=== PATIENT | male | born 1945 | race African-American/Black ===

== ENCOUNTER 2016-04-02 07:56 | Day surgery (SDC) | payer MEDICARE, OTHER ==
[2016-04-02] MEDS ORDERED: GLYCOPYRROLATE INJ 0.4 MG/2 ML VIAL ONE (08:14)
[2016-04-02] MEDS ORDERED: PROMETHAZINE HCL INJ 25 MG/1 ML VIAL ONE (08:14)
[2016-04-02] MEDS ORDERED: NALOXONE HCL INJ/PF 0.4 MG/1 ML SDV ONE (08:14)
[2016-04-02] MEDS ORDERED: ONDANSETRON HCL INJ/PF 4 MG/2 ML SDV ONE (08:14)
[2016-04-02] MEDS ORDERED: FLUMAZENIL INJ 0.5 MG/5 ML VIAL IV ONE (08:15)
[2016-04-02] MEDS ORDERED: FENTANYL CITRATE INJ/PF 100 MCG/2 ML AMPUL ONE (08:15)
[2016-04-02] MEDS ORDERED: EPINEPHRINE INJ 1 MG/10 ML DISP.SYRIN ONE (08:15)
[2016-04-02] MEDS: MIDAZOLAM 2 MG/2 ML INJ ONE ×2 (08:37→08:41)
--- NOTE | 2016-04-02 09:00 | Operative Report ---
Operative Report DATE OF SURGERY: 04/02/16 Operative Report: The risks, benefits and alternatives of the procedure including risks of bleeding, perforation requiring surgery are explained to the patient in detail and informed consent is obtained. Patient is placed in the left lateral decubital position and brought back to the endoscopy suite. Timeout is called. Conscious sedation medications are provided. An Olympus videoscope was inserted patient's rectum a rectal examination done prior to that did not reveal any masses tears or fissures the scope was then slowly advance to the cecum the seems identified by the usual anatomical landmarks of the ileocecal valve as well as the appendiceal office. Photodocumentation was obtained prep is good and scope was then sequentially pulled back via the rest was of the colon including the ascending colon, hepatic flexure, transverse colon, splenic flexure, descending colon and finally the rectosigmoid colon, mucosa does otherwise appeared to be normal. Retroflexion maneuvers performed. PREOPERATIVE DIAGNOSIS: Colorectal cancer screening POSTOPERATIVE DIAGNOSIS: 4 polyps noted in the recto sigmoid area status post snare polypectomy all the polyps are retrieved. Internal hemorrhoids. Diverticulosis OPERATION: Colonoscopy with snare polypectomy SURGEON: MARCIANO SULLIVAN ANESTHESIA: Moderate Sedation - 4 mg of Versed, 50 g of fentanyl. TISSUE REMOVED OR ALTERED: All the polyps were retrieved. COMPLICATIONS: None. ESTIMATED BLOOD LOSS: none. PROCEDURE: Patient tolerated the procedure well. No immediate postprocedure complications are noted. Patient is discharged in good condition. Discharge date 04/02/2016. Discharge diet: Regular. Discharge activity: Regular. 2-3 week follow-up to discuss findings. Surveillance colonoscopy in 5 years. Patient is instructed to call the office or proceed to the emergency room after any further problems or questions. We'll await on biopsies.
[2016-04-02 09:55] VITALS: BP 129/72
== END 2016-04-02 10:10 | disposition home or self-care (01) ==
LOC: END 07:56
PROVIDERS: ATTEND Internal Medicine Gastroenterology
PROC: 0DBN8ZX Excision of Sigmoid Colon, Via Natural or Artificial Opening Endoscopic, Diagnostic (ICD-10-PCS; principal; 2016-04-02 08:30)
DX: Z12.11 Encounter for screening for malignant neoplasm of colon (principal); D12.7 Benign neoplasm of rectosigmoid junction; K57.30 Diverticulosis of large intestine without perforation or abscess without bleeding; K64.8 Other hemorrhoids; M19.90 Unspecified osteoarthritis, unspecified site; E78.5 Hyperlipidemia, unspecified; G62.9 Polyneuropathy, unspecified; N40.1 Benign prostatic hyperplasia with lower urinary tract symptoms; K21.9 Gastro-esophageal reflux disease without esophagitis; N52.9 Male erectile dysfunction, unspecified; R97.20 Elevated prostate specific antigen [PSA]; Z79.899 Other long term (current) drug therapy
CPT/HCPCS: 45385; 88305 ×2; J2250; J3010; J0171; J2310; J2405; J2550; J3490

== ENCOUNTER 2016-06-27 12:48 | Observation (INO) | payer OTHER, MEDICARE ==
--- NOTE | 2016-06-27 13:12 | ER Document Report ---
ED Medical Screen (RME) - General Chief Complaint: Numbness of Face Stated Complaint: POSSIBLE STROKE Notes: Patient says yesterday he was cleaning some gutters and then washing cars. When he finished in the afternoon, he went in to clean up and suddenly had a "catching" of the left face that extended down into the left shoulder and arm and hand, but did not involve the leg. He said it was like a cramp. He also noticed some burning of his left eye. He had residual numbness of the left face and had to chew his food on the right side because drinking liquids with run out of his mouth. Denies any headache. Denies involvement of the legs. He says his symptoms are somewhat better today, although he still feels numb in the left face. Patient also says he has pain in the right flank region which happened when he was lifting a garage door yesterday to do his car washing. That pain has continued today, as well. Patient does not have any chest pains. Denies shortness of breath. No nausea or vomiting or diarrhea. Patient sees a local neurologist (Mark) who has him on gabapentin for peripheral neuropathy. 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 Patient says he does occasionally get cramps felt to be related to this condition. Patient had prostate biopsy about 2 weeks ago for an enlarged prostate. Patient says he had seizures as a young boy, but they stopped by the time he was in his teens. TRAVEL OUTSIDE OF THE [place] IN LAST 30 DAYS: No - Related Data Allergies/Adverse Reactions: oxycodone HCl [From Percocet] Allergy (Intermediate, Verified 06/27/16 12:56) Nausea Past Medical History - Past Medical History Cardiac Medical History: Reports: Hx Coronary Artery Disease - HIGH CHOL, Hx Hypercholesterolemia, Hx Hypertension Denies: Hx Heart Attack Pulmonary Medical History: Denies: Hx Asthma, Hx Bronchitis, Hx COPD, Hx Pneumonia Neurological Medical History: Denies: Hx Cerebrovascular Accident, Hx Seizures Renal/ Medical History: Denies: Hx Peritoneal Dialysis GI Medical History: Reports: Hx Gastroesophageal Reflux Disease Musculoskeltal Medical History: Reports Hx Arthritis Psychiatric Medical History: Reports: Hx Post Traumatic Stress Disorder - Immunizations Hx Diphtheria, Pertussis, Tetanus Vaccination: Yes Physical Exam - Vital signs Vitals: Temp Pulse Resp BP Pulse Ox 97.2 F 101 H 20 143/82 H 97 06/27/16 12:54 06/27/16 12:54 06/27/16 12:54 06/27/16 12:54 06/27/16 12:54 Course - Vital Signs Vital signs: Temp Pulse Resp BP Pulse Ox 97.2 F 101 H 20 143/82 H 97 06/27/16 12:54 06/27/16 12:54 06/27/16 12:54 06/27/16 12:54 06/27/16 12:54
[2016-06-27 13:36] LABS: ABSOLUTE EOSINOPHILS # (AUTO) 0.1 10^3/uL (0.0-0.6); ABSOLUTE LYMPHOCYTES (AUTO) 2.1 10^3/uL (0.5-4.7); ABSOLUTE MONOCYTES (AUTO) 0.4 10^3/uL (0.1-1.4); ABSOLUTE NEUT (AUTO) 1.7 10^3/uL (1.7-8.2); BASOPHILS % (AUTO) 0.8 % (0-2); EOSINOPHILS % (AUTO) 2.6 % (0-6); HEMATOCRIT 41.8 % (37.9-51.0); HEMOGLOBIN 14.2 g/dL (13.5-17.0); HGB HCT DIFFERENCE 0.8; LYMPHOCYTES % (AUTO) 47.9 % (13-45); MEAN CORPUSCULAR HEMOGLOBIN 30.4 pg (27.0-33.4); MEAN CORPUSCULAR VOLUME 89 fl (80-97); MONOCYTES % (AUTO) 9.4 % (3-13); RED BLOOD COUNT 4.68 10^6/uL (4.35-5.55); RED CELL DISTRIBUTION WIDTH 15.3 % (11.5-14.0); SEGMENTED NEUTROPHILS % (AUTO) 39.3 % (42-78); WHITE BLOOD COUNT 4.3 10^3/uL (4.0-10.5)
[2016-06-27 13:52] LABS: ALANINE AMINOTRANSFERASE 41 U/L (21-72); ALBUMIN 4.1 g/dL (3.5-5.0); ALKALINE PHOSPHATASE 70 U/L (38-126); ANION GAP 12 (5-19); ASPARTATE AMINO TRANSFERASE 33 U/L (17-59); BILIRUBIN,DIRECT 0.3 mg/dL (0.0-0.4); BILIRUBIN,TOTAL 0.7 mg/dL (0.2-1.3); BLOOD UREA NITROGEN 11 mg/dL (7-20); CALCIUM 9.5 mg/dL (8.4-10.2); CARBON DIOXIDE 26 mmol/L (22-30); CHLORIDE 106 mmol/L (98-107); CREATINE KINASE 148 U/L (55-170); CREATININE RESULT 0.88 mg/dL (0.52-1.25); GLUCOSE 95 mg/dL (75-110); POTASSIUM 4.4 mmol/L (3.6-5.0); TOTAL PROTEIN 7.7 g/dL (6.3-8.2)
[2016-06-27 13:55] LABS: APPEARANCE,URINE CLEAR; BILIRUBIN,URINE NEGATIVE (NEGATIVE); GLUCOSE, URINE NEGATIVE (NEGATIVE); KETONES,URINE NEGATIVE (NEGATIVE); LEUKOCYTE ESTERASE,URINE MODERATE (NEGATIVE); NITRITE,URINE NEGATIVE (NEGATIVE); PROTEIN,URINE NEGATIVE (NEGATIVE); URINE SPECIFIC GRAVITY 1.003; UROBILINOGEN,URINE NEGATIVE mg/dL (<2.0)
[2016-06-27 14:04] LABS: CREATINE KINASE MB 1.12 ng/mL (<4.55)
[2016-06-27 14:05] LABS: TROPONIN I < 0.012 ng/mL
[2016-06-27] MEDS ORDERED: ASPIRIN 325 MG TABLET PO ONE (14:59)
--- NOTE | 2016-06-27 15:02 | ER Document Report ---
ED General - General Chief Complaint: Numbness of Face Stated Complaint: POSSIBLE STROKE Mode of Arrival: Ambulatory Information source: Patient, Relative Notes: This is a 71-year-old -[place] male presents to the ER for evaluation of left-sided facial numbness and left arm weakness. He states that the symptoms started yesterday sometime around 1 in the afternoon. Patient states he was outside cleaning the gutters and then went inside to bathe. While he was looking in the mirror he noticed some asymmetry to the left side of his face and felt that his face was numb and that he could not control the muscles normally. He also described a burning sensation in his left eye. He states that he had some weakness to the left upper extremity as well. He decided not to say anything to his family about these symptoms. Today he noticed a slight headache with persistence of the left facial numbness and left arm weakness and he mentioned this to his who reached him to come to the ER for evaluation today. states that he has also seemed a "little slow" today, at times somewhat confused. He denies any vision complaints. He has had no nausea or vomiting. No chest pain. No prior history of similar symptoms. Of note he also has some intermittent right flank pain that began yesterday as he was lifting up the garage door. He states his he was lifting the door he felt a sudden catch in the right side of his lower back. He has had no dysuria or hematuria or frequency. TRAVEL OUTSIDE OF THE [place] IN LAST 30 DAYS: No - Related Data Allergies/Adverse Reactions: oxycodone HCl [From Percocet] Allergy (Intermediate, Verified 06/27/16 12:56) Nausea Home Medications: Current Home Medications Finasteride [Proscar 5 mg Tablet] 5 mg PO DAILY 06/27/16 [History] Gabapentin [Neurontin] 800 mg PO Q8 06/27/16 [History] Tamsulosin HCl [Flomax 0.4 mg Cap.sr] 0.4 mg PO QPM 06/27/16 [History] Past Medical History - General Information source: Patient, [facility] Records - Social History Smoking Status: Former Smoker - quit 1985 Chew tobacco use (# tins/day): No Frequency of alcohol use: None Drug Abuse: None Family History: Reviewed & Not Pertinent Patient has suicidal ideation: No Patient has homicidal ideation: No - Past Medical History Cardiac Medical History: Reports: Hx Coronary Artery Disease - HIGH CHOL, Hx Hypercholesterolemia, Hx Hypertension Denies: Hx Heart Attack Pulmonary Medical History: Denies: Hx Asthma, Hx Bronchitis, Hx COPD, Hx Pneumonia Neurological Medical History: Denies: Hx Cerebrovascular Accident, Hx Seizures Renal/ Medical History: Denies: Hx Peritoneal Dialysis GI Medical History: Reports: Hx Gastroesophageal Reflux Disease Musculoskeltal Medical History: Reports Hx Arthritis Psychiatric Medical History: Reports: Hx Post Traumatic Stress Disorder Past Surgical History: Reports: Hx Herniorrhaphy, Other - prostate biopsy 2 weeks ago - Immunizations Hx Diphtheria, Pertussis, Tetanus Vaccination: Yes Review of Systems - Review of Systems Notes: REVIEW OF SYSTEMS: CONSTITUTIONAL : Denies fever, chills, or sweats. Denies recent illness. EENT: Denies eye, ear, throat, or mouth pain or symptoms. Denies nasal or sinus congestion. CARDIOVASCULAR: Denies chest pain. RESPIRATORY: Denies cough, cold, or chest congestion. Denies shortness of breath, difficulty breathing, or wheezing. GASTROINTESTINAL: Denies abdominal pain. Denies nausea, vomiting, or diarrhea. GENITOURINARY: Denies difficulty urinating, painful urination, burning, frequency, or blood in urine. MUSCULOSKELETAL: As per history of present illness SKIN: Denies rash or skin lesions. HEMATOLOGIC : Denies easy bruising or bleeding. LYMPHATIC: Denies swollen, enlarged glands. NEUROLOGICAL: As per history of present illness PSYCHIATRIC: Denies anxiety or stress or depression. ALL OTHER SYSTEMS REVIEWED AND NEGATIVE. Physical Exam - Vital signs Vitals: Temp Pulse Resp BP Pulse Ox 97.2 F 101 H 20 143/82 H 97 06/27/16 12:54 06/27/16 12:54 06/27/16 12:54 06/27/16 12:54 06/27/16 12:54 - Notes Notes: PHYSICAL EXAMINATION: GENERAL: Well-appearing, well-nourished alert and conversant, and in no acute distress. HEAD: Atraumatic, normocephalic. EYES: Pupils equal round and reactive to light, extraocular movements intact, sclera anicteric, conjunctiva are normal. ENT: nares patent, oropharynx clear without exudates. Moist mucous membranes. NECK: Normal range of motion, supple without lymphadenopathy LUNGS: Breath sounds clear to auscultation bilaterally and equal. No wheezes rales or rhonchi. HEART: Regular rate and rhythm without murmurs ABDOMEN: Soft, nontender, normoactive bowel sounds. No guarding, no rebound. No masses appreciated. EXTREMITIES: Normal range of motion, no pitting or edema. NEUROLOGICAL: Alert and oriented x3. Cranial nerves intact bilaterally with exception of persistant L facial numbness per patient. states pt still has mild facial asymmetry, but I do not appreciate this at this time. Motor strength decreased LUE with forearm extension and dairy manager strength 4/5 as compared to RUE. No pronator drift. Motor strength 5/5 BLE. Negative finger to nose. PSYCH: Normal mood, normal affect. SKIN: Warm, Dry, normal turgor, no rashes or lesions noted. Course - Re-evaluation Re-evalutation: 06/27/16 Patient has remained hemodynamically stable in the emergency department. He has had no change in his neuro exam. His CT of his head was negative. He has been given aspirin. Will admit to hospitalist to for further CVA/TIA workup. Patient and his are agreeable with this plan and their questions are answered. - Vital Signs Vital signs: Temp Pulse Resp BP Pulse Ox 98.1 F 66 18 132/75 H 100 06/27/16 19:30 06/27/16 20:00 06/27/16 20:00 06/27/16 20:00 06/27/16 20:00 - Laboratory Result Diagrams: 06/27/16 13:15 06/27/16 13:15 Laboratory results interpreted by me: 06/27/16 06/27/16 13:15 13:15 RDW 15.3 H Seg Neutrophils % 39.3 L Lymphocytes % 47.9 H Urine Blood LARGE H Ur Leukocyte Esterase MODERATE H Discharge - Discharge Clinical Impression: Elevated blood pressure reading, Abnormal urinalysis CVA (cerebrovascular accident) Qualifiers: CVA mechanism: unspecified Qualified Code(s): I63.9 - Cerebral infarction, unspecified Condition: Stable Disposition: ADMITTED OBSERVATION Admitting Provider: Hospitalist - Dr. Harjit Joe Unit Admitted: Telemetry
[2016-06-27] MEDS ORDERED: CEFTRIAXONE 1 GM/D5W RTU 50 ML IV ONE (15:05)
--- NOTE | 2016-06-27 16:49 | EKG REPORT ---
SEVERITY:- NORMAL ECG - SINUS RHYTHM : Confirmed by: Joyce Quach MD 27-Jun-2016 16:47:50
--- NOTE | 2016-06-27 17:13 | PDOC H&P ---
History of Present Illness Admission Date/PCP: 06/27/16 15:56 ENDY WYATT DO Patient complains of: Left facial droop and weakness History of Present Illness: LISBETH DOWNING is a 71 year old male with a past medical history of benign prostatic hyperplasia recent biopsy that presented to the emergency department for evaluation of left-sided facial numbness and left arm weakness. He states that the symptoms started yesterday sometime around 1300. Patient states he was outside cleaning the gutters and then went inside to bathe. While he was looking in the mirror he noticed some asymmetry to the left side of his face and felt that his face was numb and that he could not control the muscles normally. He also described a burning sensation in his left eye. He states that he had some weakness to the left upper extremity as well. He decided not to say anything to his family about these symptoms. She denies any dysphasia, chest pain, nausea, vomiting, diarrhea, shortness of breath, dizziness, or fever. Today he noticed a slight headache with persistence of the left facial numbness and left arm weakness and he mentioned this to his who reached him to come to the ER for evaluation today. states that he has also seemed a "little slow" today, at times somewhat confused. He denies any vision complaints. He has had no nausea or vomiting. No chest pain. No prior history of similar symptoms. Of note he also has some intermittent right flank pain that began yesterday as he was lifting up the garage door. He states his he was lifting the door he felt a sudden catch in the right side of his lower back. He has had no dysuria or hematuria or frequency. Patient referred to the hospitalist for observation and management. Past Medical History Cardiac Medical History: Reports: Coronary Artery Disease, Hyperlipidema, Hypertension Renal/ Medical History: Reports: Other - Benign prostatic hyperplasia GI Medical History: Reports: Gastroesophageal Reflux Disease Musculoskeltal Medical History: Reports: Arthritis Psychiatric Medical History: Reports: Post Traumatic Stress Disorder Past Surgical History Past Surgical History: Reports: Herniorrhaphy, Other - prostate biopsy 2 weeks ago Social History Information Source: Patient Occupation: Retired from the [employer] Lives with: Family, Spouse/Significant other Smoking Status: Former Smoker - quit 1985 Frequency of Alcohol Use: Social Hx Recreational Drug Use: No Hx Prescription Drug Abuse: No - Advance Directive Resuscitation Status: Full Code Surrogate healthcare decision maker:: Rufina, his spouse Family History Family History: CVA, Hypertension Parental Family History Reviewed: Yes Children Family History Reviewed: Yes Sibling(s) Family History Reviewed.: Yes Medication/Allergy Home Medications: Finasteride [Proscar 5 mg Tablet] 5 mg PO DAILY 06/27/16 Gabapentin [Neurontin] 800 mg PO Q8 06/27/16 Tamsulosin HCl [Flomax 0.4 mg Cap.sr] 0.4 mg PO QPM 06/27/16 Allergies/Adverse Reactions: oxycodone HCl [From Percocet] Allergy (Intermediate, Verified 06/27/16 12:56) Nausea Review of Systems Constitutional: PRESENT: weakness. ABSENT: chills, fever(s), headache(s), weight gain, weight loss Eyes: ABSENT: visual disturbances Ears: ABSENT: hearing changes Cardiovascular: ABSENT: chest pain, dyspnea on exertion, edema, orthropnea, palpitations Respiratory: ABSENT: cough, hemoptysis Gastrointestinal: ABSENT: abdominal pain, constipation, diarrhea, hematemesis, hematochezia, nausea, vomiting Genitourinary: ABSENT: dysuria, hematuria Musculoskeletal: ABSENT: joint swelling Integumentary: ABSENT: rash, wounds Neurological: PRESENT: numbness. ABSENT: abnormal gait, abnormal speech, confusion, dizziness, focal weakness, syncope Psychiatric: ABSENT: anxiety, depression, homidical ideation, suicidal ideation Endocrine: ABSENT: cold intolerance, heat intolerance, polydipsia, polyuria Hematologic/Lymphatic: ABSENT: easy bleeding, easy bruising Physical Exam Vital Signs: Temp Pulse Resp BP Pulse Ox 97.2 F 101 H 20 143/82 H 97 06/27/16 12:54 06/27/16 12:54 06/27/16 12:54 06/27/16 12:54 06/27/16 12:54 General appearance: PRESENT: no acute distress, cooperative, well-developed, well-nourished Head exam: PRESENT: atraumatic, normocephalic Eye exam: PRESENT: conjunctiva pink, EOMI, PERRLA. ABSENT: scleral icterus Ear exam: PRESENT: normal external ear exam Mouth exam: PRESENT: moist, tongue midline Neck exam: ABSENT: carotid bruit, JVD, lymphadenopathy, thyromegaly Respiratory exam: PRESENT: clear to auscultation holly, symmetrical, unlabored. ABSENT: rales, rhonchi, tachypnea, wheezes Cardiovascular exam: PRESENT: RRR. ABSENT: diastolic murmur, rubs, systolic murmur Pulses: PRESENT: normal dorsalis pedis pul Vascular exam: PRESENT: normal capillary refill GI/Abdominal exam: PRESENT: normal bowel sounds, soft. ABSENT: distended, guarding, mass, organolmegaly, rebound, tenderness Rectal exam: PRESENT: deferred Extremities exam: PRESENT: full ROM. ABSENT: calf tenderness, clubbing, pedal edema Neurological exam: PRESENT: alert, awake, oriented to person, oriented to place , oriented to time, oriented to situation, other - Left-sided weakness is noted ever so faint left-sided facial droop. ABSENT: motor sensory deficit Psychiatric exam: PRESENT: appropriate affect, normal mood. ABSENT: homicidal ideation, suicidal ideation Skin exam: PRESENT: dry, intact, warm. ABSENT: cyanosis, rash Results Laboratory Results: Labs- Last Values WBC 4.3 10^3/uL (4.0-10.5) 06/27/16 13:15 RBC 4.68 10^6/uL (4.35-5.55) 06/27/16 13:15 Hgb 14.2 g/dL (13.5-17.0) 06/27/16 13:15 Hct 41.8 % (37.9-51.0) 06/27/16 13:15 MCV 89 fl (80-97) 06/27/16 13:15 MCH 30.4 pg (27.0-33.4) 06/27/16 13:15 MCHC 34.0 g/dL (32.0-36.0) 06/27/16 13:15 RDW 15.3 % (11.5-14.0) H 06/27/16 13:15 Plt Count 228 10^3/uL (150-450) 06/27/16 13:15 Seg Neutrophils % 39.3 % (42-78) L 06/27/16 13:15 Lymphocytes % 47.9 % (13-45) H 06/27/16 13:15 Monocytes % 9.4 % (3-13) 06/27/16 13:15 Eosinophils % 2.6 % (0-6) 06/27/16 13:15 Basophils % 0.8 % (0-2) 06/27/16 13:15 Absolute Neutrophils 1.7 10^3/uL (1.7-8.2) 06/27/16 13:15 Absolute Lymphocytes 2.1 10^3/uL (0.5-4.7) 06/27/16 13:15 Absolute Monocytes 0.4 10^3/uL (0.1-1.4) 06/27/16 13:15 Absolute Eosinophils 0.1 10^3/uL (0.0-0.6) 06/27/16 13:15 Absolute Basophils 0.0 10^3/uL (0.0-0.2) 06/27/16 13:15 Sodium 144.0 mmol/L (137-145) 06/27/16 13:15 Potassium 4.4 mmol/L (3.6-5.0) 06/27/16 13:15 Chloride 106 mmol/L (98-107) 06/27/16 13:15 Carbon Dioxide 26 mmol/L (22-30) 06/27/16 13:15 Anion Gap 12 (5-19) 06/27/16 13:15 BUN 11 mg/dL (7-20) 06/27/16 13:15 Creatinine 0.88 mg/dL (0.52-1.25) 06/27/16 13:15 Est GFR ( Amer) > 60 (>60) 06/27/16 13:15 Est GFR (Non-Af Amer) > 60 (>60) 06/27/16 13:15 Glucose 95 mg/dL (75-110) 06/27/16 13:15 Calcium 9.5 mg/dL (8.4-10.2) 06/27/16 13:15 Total Bilirubin 0.7 mg/dL (0.2-1.3) 06/27/16 13:15 Direct Bilirubin 0.3 mg/dL (0.0-0.4) 06/27/16 13:15 Indirect Bilirubin Not Reportable 06/27/16 13:15 Neonat Total Bilirubin Not Reportable 06/27/16 13:15 AST 33 U/L (17-59) 06/27/16 13:15 ALT 41 U/L (21-72) 06/27/16 13:15 Alkaline Phosphatase 70 U/L (38-126) 06/27/16 13:15 Creatine Kinase 148 U/L (55-170) 06/27/16 13:15 CK-MB (CK-2) 1.12 ng/mL (<4.55) 06/27/16 13:15 Troponin I < 0.012 ng/mL 06/27/16 13:15 Total Protein 7.7 g/dL (6.3-8.2) 06/27/16 13:15 Albumin 4.1 g/dL (3.5-5.0) 06/27/16 13:15 Urine Color STRAW 06/27/16 13:15 Urine Appearance CLEAR 06/27/16 13:15 Urine pH 7.0 (5.0-9.0) 06/27/16 13:15 Ur Specific [place] 1.003 06/27/16 13:15 Urine Protein NEGATIVE mg/dL (NEGATIVE) 06/27/16 13:15 Urine Glucose (UA) NEGATIVE mg/dL (NEGATIVE) 06/27/16 13:15 Urine Ketones NEGATIVE mg/dL (NEGATIVE) 06/27/16 13:15 Urine Blood LARGE (NEGATIVE) H 06/27/16 13:15 Urine Nitrite NEGATIVE (NEGATIVE) 06/27/16 13:15 Urine Bilirubin NEGATIVE (NEGATIVE) 06/27/16 13:15 Urine Urobilinogen NEGATIVE mg/dL (<2.0) 06/27/16 13:15 Ur Leukocyte Esterase MODERATE (NEGATIVE) H 06/27/16 13:15 Urine WBC (Auto) 7 /HPF 06/27/16 13:15 Urine RBC (Auto) 2 /HPF 06/27/16 13:15 Urine Bacteria (Auto) TRACE /HPF 06/27/16 13:15 Urine Mucus (Auto) RARE /LPF 06/27/16 13:15 Urine Ascorbic Acid NEGATIVE (NEGATIVE) 06/27/16 13:15 Impressions: Head CT 06/27/16 13:13 IMPRESSION: NORMAL BRAIN CT WITHOUT CONTRAST. Chest X-Ray 06/27/16 15:15 IMPRESSION: NO ACUTE RADIOGRAPHIC FINDING IN THE CHEST. Assessment & Plan - Diagnosis (1) CVA (cerebrovascular accident) Qualifiers: CVA mechanism: unspecified Qualified Code(s): I63.9 - Cerebral infarction, unspecified Is this a current diagnosis for this admission?: YesPlan: Will observe the patient seems telemetry unit will obtain MRI, carotid Doppler, and echocardiogram. Will allow permissive hypertension start patient on full dose statin as well as aspirin therapy. Will monitor clinically. Will consult physical, occupational, and speech therapies. (2) BPH (benign prostatic hyperplasia) Qualifiers: Prostatic enlargement morphology: unspecified morphology Lower urinary tract symptom presence: symptoms absent Qualified Code(s): N40.0 - Benign prostatic hyperplasia without lower urinary tract symptoms Is this a current diagnosis for this admission?: YesPlan: Resume home blood pressure medications. (3) Abnormal urinalysis Is this a current diagnosis for this admission?: YesPlan: The patient received a dose of Rocephin in the ER. Will await culture. (4) Hypertension Qualifiers: Hypertension type: essential hypertension Qualified Code(s): I10 - Essential (primary) hypertension Is this a current diagnosis for this admission?: YesPlan: The patient does not take medications for this although he states he has been diagnosed in the past. Will allow for permissive hypertension and follow. (5) DVT prophylaxis Is this a current diagnosis for this admission?: YesPlan: Plan subcutaneous heparin - Time Time Spent: 50 to 70 Minutes Medications reviewed and adjusted accordingly: Yes Anticipated discharge: Home Within: within 24 hours Disposition: The patient is a full code. Pending patient's symptomatology and diagnostic findings will reevaluate in the a.m.
[2016-06-27] MEDS ORDERED: TAMSULOSIN HCL 0.4 MG CAP.SR.24H PO SCH (18:00)
[2016-06-27] MEDS: GABAPENTIN 400 MG CAPSULE PO SCH (21:16)
[2016-06-27] MEDS: HEPARIN SOD (PORCINE) 5,000 UNIT/ML 1 ML SYRINGE SUBCUT SCH (21:20)
[2016-06-27] MEDS ORDERED: ATORVASTATIN CALCIUM 80 MG TABLET PO SCH (22:00)
[2016-06-28] MEDS: HEPARIN SOD (PORCINE) 5,000 UNIT/ML 1 ML SYRINGE SUBCUT SCH (05:34)
[2016-06-28] MEDS: GABAPENTIN 400 MG CAPSULE PO SCH ×2 (05:34→15:33)
[2016-06-28 07:11] LABS: CHOLESTEROL 233.04 mg/dL (0-200); Direct HDL 46 mg/dL (>40); TRIGLYCERIDES 356 mg/dL (<150)
[2016-06-28 07:21] LABS: DIRECT LDL 52 mg/dL (<100)
[2016-06-28 07:23] LABS: VLDL CHOLESTEROL 71.2 mg/dL (10-31)
[2016-06-28] MEDS ORDERED: FINASTERIDE 5 MG TABLET PO SCH (10:00)
[2016-06-28] MEDS ORDERED: ASPIRIN 81 MG TABLET, CHEWABLE PO SCH (10:00)
[2016-06-28] MEDS ORDERED: ACETAMINOPHEN 325 MG TABLET PO PRN (10:23)
--- NOTE | 2016-06-28 13:25 | XCELERA REPORT ---
[address] [address] Transthoracic Echocardiogram Report Name: LISBETH DOWNING Age: 71 yrs Gender: Male : 1945 Patient Status: Inpatient Patient Location: [id number]\S\319\S\A Study Date: 06/28/2016 09:45 AM Height: 72 in Weight: 203 lb BSA: 2.1 m2 Procedure: A complete two-dimensional transthoracic echocardiogram was performed (2D, M-mode, spectral and color flow Doppler). The study was technically adequate with some images being suboptimal in quality. Reason For Study: CVA Ordering Physician: DANA CALL Performed By: Sirisha Qiu Interpretation Summary Left ventricular systolic function is low normal. Doppler measurements suggest impaired left ventricular relaxation, which is associated with grade I/IV or mild diastolic dysfunction The left ventricle is grossly normal size. Regional wall motion abnormalities cannot be excluded due to limited visualization. The right ventricle is mildly dilated. There is normal right ventricular wall thickness. The right atrium is mildly dilated. The left atrial size is normal. There is no mitral valve stenosis. There is a trace amount of mitral regurgitation No aortic regurgitation is present. There is no aortic valve stenosis There is a trace or physiologic amount of tricuspid regurgitation Tricuspid regurgitation jet envelope not well defined to measure RV systolic pressure accurately. The aortic root is not well visualized. The inferior vena cava appeared normal and decreased > 50% with respiration (RAP 5-10 mmHg) There is no pericardial effusion. No definite cardiac source of CVA/TIA noted on this particular trans- thoracic study. Consider GUEVARA if clinically indicated. May consider mobile cardiac telemetry monitoring (MCT) for ruling out transient AFIB. MMode/2D Measurements \T\ Calculations RVDd: 3.4 cm LVIDd: 4.5 cmFS: 28.2 % Ao root diam: 4.2 cm IVSd: 1.1 cm LVIDs: 3.2 cmEDV(Teich): 93.1 ml LVPWd: 1.1 cmESV(Teich): 42.3 ml Ao root area: 13.6 cm2 EF(Teich): 54.6 % LA dimension: 3.2 cm LVOT diam: 2.6 cm LVOT area: 5.5 cm2 Doppler Measurements \T\ Calculations MV E max hoa: MV P1/2t max hoa: Ao V2 max: LV V1 max P.8 cm/sec 76.8 cm/sec 95.3 cm/sec 2.4 mmHg MV A max hoa: MV P1/2t: 55.2 msec Ao max PG: LV V1 max: 56.2 cm/sec MVA(P1/2t): 4.0 cm2 3.6 mmHg 77.8 cm/sec MV E/A: 1.3 MV dec slope: DONITA(V,D): 4.5 cm2 407.5 cm/sec2 PA V2 max: PI end-d hoa: TR max hoa: 67.2 cm/sec 89.2 cm/sec 190.2 cm/sec PA max PG: TR max P.8 mmHg 14.5 mmHg Left Ventricle The left ventricle is grossly normal size. Left ventricular systolic function is low normal. Doppler measurements suggest impaired left ventricular relaxation, which is associated with grade I/IV or mild diastolic dysfunction. Regional wall motion abnormalities cannot be excluded due to limited visualization. Right Ventricle The right ventricle is mildly dilated. There is normal right ventricular wall thickness. The right ventricular systolic function is normal. Atria The right atrium is mildly dilated. The left atrial size is normal. Mitral Valve The mitral valve is grossly normal. There is no mitral valve stenosis. There is a trace amount of mitral regurgitation. Aortic Valve The aortic valve is sclerotic, but shows no functional abnormality. There is no aortic valve stenosis. No aortic regurgitation is present. Tricuspid Valve The tricuspid valve is not well visualized, but is grossly normal. There is no tricuspid stenosis. There is a trace or physiologic amount of tricuspid regurgitation. Tricuspid regurgitation jet envelope not well defined to measure RV systolic pressure accurately. Pulmonic Valve The pulmonic valve is not well visualized. Great Vessels The aortic root is not well visualized. The inferior vena cava appeared normal and decreased > 50% with respiration (RAP 5-10 mmHg). Effusions There is no pericardial effusion. Incidental Findings No definite cardiac source of CVA/TIA noted on this particular trans- thoracic study. Consider GUEVARA if clinically indicated. May consider mobile cardiac telemetry monitoring (MCT) for ruling out transient AFIB. : DANA CALL > Clark Bell
[2016-06-28 17:08] VITALS: BP 112/72
--- NOTE | 2016-06-28 17:11 | PDOC DISCHARGE SUMMARY ---
General - Admit/Disc Date/PCP Admission Date/Primary Care Provider: 06/27/16 16:41 ENDY WYATT DO Outpatient neurologist: Dr. Flores Discharge Date: 06/28/16 - Discharge Diagnosis (1) CVA (cerebrovascular accident) Is this a current diagnosis for this admission?: Yes (2) BPH (benign prostatic hyperplasia) Is this a current diagnosis for this admission?: Yes (3) Hypertension Is this a current diagnosis for this admission?: Yes (4) DVT prophylaxis Is this a current diagnosis for this admission?: Yes - Additional Information Resuscitation Status: Full Code Discharge Diet: As Tolerated, Cardiac Discharge Activity: Supervised Activity Home Medications: Finasteride [Proscar 5 mg Tablet] 5 mg PO DAILY 06/27/16 Gabapentin [Neurontin] 800 mg PO Q8 06/27/16 Tamsulosin HCl [Flomax 0.4 mg Cap.sr] 0.4 mg PO QPM 06/27/16 Aspirin [Aspirin 81 mg Chewable Tablet] 81 mg PO DAILY #30 tab.chew 06/28/16 Atorvastatin Calcium [Lipitor 80 mg Tablet] 80 mg PO QHS #30 tablet 06/28/16 History of Present Illness Patient complains of: Left-sided facial drooping History of Present Illness: LISBETH DOWNING is a 71 year old male with a past medical history of benign prostatic hyperplasia recent biopsy that presented to the emergency department for evaluation of left-sided facial numbness and left arm weakness. He states that the symptoms started yesterday sometime around 1300. Patient states he was outside cleaning the gutters and then went inside to bathe. While he was looking in the mirror he noticed some asymmetry to the left side of his face and felt that his face was numb and that he could not control the muscles normally. He also described a burning sensation in his left eye. He states that he had some weakness to the left upper extremity as well. He decided not to say anything to his family about these symptoms. She denies any dysphasia, chest pain, nausea, vomiting, diarrhea, shortness of breath, dizziness, or fever. Today he noticed a slight headache with persistence of the left facial numbness and left arm weakness and he mentioned this to his who reached him to come to the ER for evaluation today. states that he has also seemed a "little slow" today, at times somewhat confused. He denies any vision complaints. He has had no nausea or vomiting. No chest pain. No prior history of similar symptoms. Of note he also has some intermittent right flank pain that began yesterday as he was lifting up the garage door. He states his he was lifting the door he felt a sudden catch in the right side of his lower back. He has had no dysuria or hematuria or frequency. Patient referred to the hospitalist for observation and management. Hospital Course Hospital Course: The patient was admitted to continuous telemetry unit. Carotid Doppler, echocardiogram, and noncontrasted MRI study was obtained. Findings were consistent with no evidence of acute infarction, stenosis, or hemorrhage. The patient was allowed permissive hypertension however the patient does not have hypertension at baseline. Physical therapy, speech therapy, and occupational therapy were ordered recommendations for outpatient therapy were made and ordered.. The patient was noted to have an obvious deficit throughout the left side as well as facial droop in spite of findings on imaging. The patient was started on aspirin and statin therapy. The patient states that he is established with a neurologist that follows him for peripheral neuropathy and he will follow-up with him as soon as possible. The patient elects to defer further imaging. Physical Exam Vital Signs: Temp Pulse Resp BP Pulse Ox 98.3 F 59 L 19 112/71 100 06/28/16 15:27 06/28/16 15:27 06/28/16 15:27 06/28/16 15:27 06/28/16 15:27 Intake & Output 06/26/16 06/27/16 06/28/16 23:59 23:59 23:59 Intake Total 1685 Output Total 500 Balance 1185 Weight 93 kg General appearance: PRESENT: no acute distress, cooperative, well-developed, well-nourished Head exam: PRESENT: atraumatic, normocephalic Eye exam: PRESENT: conjunctiva pink, EOMI, PERRLA. ABSENT: scleral icterus Ear exam: PRESENT: normal external ear exam Mouth exam: PRESENT: moist, tongue midline Neck exam: ABSENT: carotid bruit, JVD, lymphadenopathy, thyromegaly Respiratory exam: PRESENT: clear to auscultation holly, symmetrical, unlabored. ABSENT: rales, rhonchi, tachypnea, wheezes Cardiovascular exam: PRESENT: RRR. ABSENT: diastolic murmur, rubs, systolic murmur Pulses: PRESENT: normal dorsalis pedis pul Vascular exam: PRESENT: normal capillary refill GI/Abdominal exam: PRESENT: normal bowel sounds, soft. ABSENT: distended, guarding, mass, organolmegaly, rebound, tenderness Rectal exam: PRESENT: deferred Extremities exam: PRESENT: full ROM, left-sided weakness noted of upper and lower left extremities. ABSENT: calf tenderness, clubbing, pedal edema Neurological exam: PRESENT: alert, awake, oriented to person, oriented to place , oriented to time, oriented to situation, other - Left-sided weakness is noted ever so faint left-sided facial droop which is more prominent today. ABSENT: motor sensory deficit Psychiatric exam: PRESENT: appropriate affect, normal mood. ABSENT: homicidal ideation, suicidal ideation Skin exam: PRESENT: dry, intact, warm. ABSENT: cyanosis, rash Results Laboratory Results: Labs- Last Values WBC 4.3 10^3/uL (4.0-10.5) 06/27/16 13:15 RBC 4.68 10^6/uL (4.35-5.55) 06/27/16 13:15 Hgb 14.2 g/dL (13.5-17.0) 06/27/16 13:15 Hct 41.8 % (37.9-51.0) 06/27/16 13:15 MCV 89 fl (80-97) 06/27/16 13:15 MCH 30.4 pg (27.0-33.4) 06/27/16 13:15 MCHC 34.0 g/dL (32.0-36.0) 06/27/16 13:15 RDW 15.3 % (11.5-14.0) H 06/27/16 13:15 Plt Count 228 10^3/uL (150-450) 06/27/16 13:15 Seg Neutrophils % 39.3 % (42-78) L 06/27/16 13:15 Lymphocytes % 47.9 % (13-45) H 06/27/16 13:15 Monocytes % 9.4 % (3-13) 06/27/16 13:15 Eosinophils % 2.6 % (0-6) 06/27/16 13:15 Basophils % 0.8 % (0-2) 06/27/16 13:15 Absolute Neutrophils 1.7 10^3/uL (1.7-8.2) 06/27/16 13:15 Absolute Lymphocytes 2.1 10^3/uL (0.5-4.7) 06/27/16 13:15 Absolute Monocytes 0.4 10^3/uL (0.1-1.4) 06/27/16 13:15 Absolute Eosinophils 0.1 10^3/uL (0.0-0.6) 06/27/16 13:15 Absolute Basophils 0.0 10^3/uL (0.0-0.2) 06/27/16 13:15 Sodium 144.0 mmol/L (137-145) 06/27/16 13:15 Potassium 4.4 mmol/L (3.6-5.0) 06/27/16 13:15 Chloride 106 mmol/L (98-107) 06/27/16 13:15 Carbon Dioxide 26 mmol/L (22-30) 06/27/16 13:15 Anion Gap 12 (5-19) 06/27/16 13:15 BUN 11 mg/dL (7-20) 06/27/16 13:15 Creatinine 0.88 mg/dL (0.52-1.25) 06/27/16 13:15 Est GFR ( Amer) > 60 (>60) 06/27/16 13:15 Est GFR (Non-Af Amer) > 60 (>60) 06/27/16 13:15 Glucose 95 mg/dL (75-110) 06/27/16 13:15 Calcium 9.5 mg/dL (8.4-10.2) 06/27/16 13:15 Total Bilirubin 0.7 mg/dL (0.2-1.3) 06/27/16 13:15 Direct Bilirubin 0.3 mg/dL (0.0-0.4) 06/27/16 13:15 Indirect Bilirubin Not Reportable 06/27/16 13:15 Neonat Total Bilirubin Not Reportable 06/27/16 13:15 AST 33 U/L (17-59) 06/27/16 13:15 ALT 41 U/L (21-72) 06/27/16 13:15 Alkaline Phosphatase 70 U/L (38-126) 06/27/16 13:15 Creatine Kinase 148 U/L (55-170) 06/27/16 13:15 CK-MB (CK-2) 1.12 ng/mL (<4.55) 06/27/16 13:15 Troponin I < 0.012 ng/mL 06/27/16 13:15 Total Protein 7.7 g/dL (6.3-8.2) 06/27/16 13:15 Albumin 4.1 g/dL (3.5-5.0) 06/27/16 13:15 Triglycerides 356 mg/dL (<150) H 06/28/16 06:03 Cholesterol 233.04 mg/dL (0-200) H 06/28/16 06:03 LDL Cholesterol Direct 52 mg/dL (<100) 06/28/16 06:03 VLDL Cholesterol 71.2 mg/dL (10-31) H 06/28/16 06:03 HDL Cholesterol 46 mg/dL (>40) 06/28/16 06:03 Urine Color STRAW 06/27/16 13:15 Urine Appearance CLEAR 06/27/16 13:15 Urine pH 7.0 (5.0-9.0) 06/27/16 13:15 Ur Specific [place] 1.003 06/27/16 13:15 Urine Protein NEGATIVE mg/dL (NEGATIVE) 06/27/16 13:15 Urine Glucose (UA) NEGATIVE mg/dL (NEGATIVE) 06/27/16 13:15 Urine Ketones NEGATIVE mg/dL (NEGATIVE) 06/27/16 13:15 Urine Blood LARGE (NEGATIVE) H 06/27/16 13:15 Urine Nitrite NEGATIVE (NEGATIVE) 06/27/16 13:15 Urine Bilirubin NEGATIVE (NEGATIVE) 06/27/16 13:15 Urine Urobilinogen NEGATIVE mg/dL (<2.0) 06/27/16 13:15 Ur Leukocyte Esterase MODERATE (NEGATIVE) H 06/27/16 13:15 Urine WBC (Auto) 7 /HPF 06/27/16 13:15 Urine RBC (Auto) 2 /HPF 06/27/16 13:15 Urine Bacteria (Auto) TRACE /HPF 06/27/16 13:15 Urine Mucus (Auto) RARE /LPF 06/27/16 13:15 Urine Ascorbic Acid NEGATIVE (NEGATIVE) 06/27/16 13:15 06/27/16 19:40 Blood Culture - Pending Blood 06/27/16 15:52 Blood Culture - Preliminary Blood NO GROWTH IN 24 HOURS 06/27/16 13:15 Urine Culture - Preliminary Clean Catch Midstream NO GROWTH IN 1 DAY Impressions: Head MRI 06/27/16 00:00 IMPRESSION: NORMAL MRI OF THE BRAIN WITHOUT INTRAVENOUS GADOLINIUM CONTRAST. Head CT 06/27/16 13:13 IMPRESSION: NORMAL BRAIN CT WITHOUT CONTRAST. Chest X-Ray 06/27/16 15:15 IMPRESSION: NO ACUTE RADIOGRAPHIC FINDING IN THE CHEST. Carotid Doppler Study 06/28/16 00:00 IMPRESSION: No flow significant stenosis at the carotid bifurcations Qualifiers PATEINT BEING DISCHARGED WITH ANY OF THE FOLLOWING DIAGNOSIS?: Stroke VTE patient discharged on overlapping Therapy?: No Stroke Pt being discharged on Anti-thrombolytic therapy?: Yes Stroke Pt being discharged on Anti-coagulation therapy?: No Reason(s) for not prescribing Anti-coagulation therapy:: Not indicated Stroke Pt being discharged on Statins?: Yes AL Pt being discharged on Aspirin therapy?: Yes Plan Discharge Plan: The patient will follow with primary care provider within one week for hospital follow-up and to reevaluate blood pressure. The patient will follow with his neurologist Dr. Flores within one week hospital follow-up. Time Spent: Less than 30 Minutes
== END 2016-06-28 16:08 | disposition home or self-care (01) ==
LOC: ER 12:48 → UNDOADMOB 15:56 → EH 15:56 → 3W 19:07
DX: I63.9 Cerebral infarction, unspecified (principal); R29.810 Facial weakness; G81.94 Hemiplegia, unspecified affecting left nondominant side; N40.0 Benign prostatic hyperplasia without lower urinary tract symptoms; I10 Essential (primary) hypertension; Z79.82 Long term (current) use of aspirin; Z79.899 Other long term (current) drug therapy; H57.8 Other specified disorders of eye and adnexa; R10.9 Unspecified abdominal pain; I25.10 Atherosclerotic heart disease of native coronary artery without angina pectoris; R82.90 Unspecified abnormal findings in urine; G62.9 Polyneuropathy, unspecified; E78.5 Hyperlipidemia, unspecified; Z98.890 Other specified postprocedural states; Z87.891 Personal history of nicotine dependence; Z82.49 Family history of ischemic heart disease and other diseases of the circulatory system; Z82.3 Family history of stroke
CPT/HCPCS: 93005; 99285; 96365; 36415 ×2; 87040; 87086; 82553; 82550; 85025; 80053; 81001; 84484; 80061; 93306; 93880; 70551; 71010; 70450; 93010; 97163; 92610; 97167; G0378 ×3; J1644 ×2; J3490 ×2; J0696; G8978; G8979; G8996; G8997; G8987; G8988

== ENCOUNTER 2019-05-23 07:35 | Day surgery (SDC) | payer MEDICARE, OTHER ==
[~2019-05-23 07:35] MED LIST: KETOROLAC TROMETHAMINE 0.45% 4 DROP/0.4 ML DROPERETTE OD PRN; MIDAZOLAM 2 MG/2 ML INJ ONE
[2019-05-23] MEDS ORDERED: LIDOCAINE 1%/PHENYLEPHRINE 1.5% 1 ML VIAL ONE (07:42)
[2019-05-23] MEDS ORDERED: CHONDR SU A NA/HYALUR INTRAOC KIT (SURGICARE) ONE (07:42)
[2019-05-23] MEDS ORDERED: EPINEPHRINE INJ/PF 1 MG/1 ML AMPULE ONE (07:42)
[2019-05-23] MEDS: CYCLOPENTOLATE 0.2%/PHENYLEPHRINE 1% OPH SOLN 2 ML OD PRN ×3 (08:15→08:35)
[2019-05-23] MEDS: BESIFLOXACIN HCL 0.6% OPH SUSP 5 ML BOTTLE OD PRN ×4 (08:15→09:00)
[2019-05-23] MEDS: TROPICAMIDE 1% OPH SOLN 15 ML OD PRN ×3 (08:15→08:35)
[2019-05-23] MEDS: TETRACAINE HCL 0.5% OPH SOLN 4 ML OD PRN ×3 (08:15→08:39)
[2019-05-23] MEDS: DORZOLAMIDE HCL 2%/TIMOLOL MALEAT 0.5% OPH SOLN 10 ML OD PRN ×2 (08:58→09:00)
--- NOTE | 2019-05-23 14:41 | Operative Report ---
Operative Report-[facility] Operative Report: DATE OF SURGERY: May 23, 2019 PREOPERATIVE DIAGNOSIS: NUCLEAR CATARACT, RIGHT EYE. POSTOPERATIVE DIAGNOSIS: NUCLEAR CATARACT, RIGHT EYE. PROCEDURE PERFORMED: PHACOEMULSIFICATION WITH POSTERIOR CHAMBER INTRAOCULAR LENS IMPLANT, RIGHT EYE. SURGEON: Edgar Clifford DO MEDICATIONS AND ANESTHESIA: Versed: IV Versed Tetracaine drops: 1 to 2 drops given as needed COMPLICATION: None INDICATIONS FOR SURGERY: Medical necessity: Best corrected visual acuity worse than 20/40 secondary to cataracts with impairment of ability to carry out needs or desired activities, blurred vision, visual distortion, reduced contrast sensitivity and/or glare with association functional impairment and supporting documentation/testing, and cataracts causing symptomatic impairment of visual functions not corrected with tolerable changes in glasses or contact lenses interfering with activities of daily life. PROCEDURE: Consent: The risks, benefits and alternatives of this procedures was discussed with the patient. The patient read and signed the consent forms, was identified and was seated in the exam chair. IOL: MX 60 E 20.5 IOL Diopters: Phacoemulsification with posterior chamber intraocular lens implant: The face was prepped with 5% povidone iodine solution, and a few drops of 5% povidone iodine solution was instilled into the inferior fornix. A non-fenestrated drape was placed over the eye and the lids were parted with the speculum. A paracentesis was made with a 15 degree blade, and 1% lidocaine MPF followed by viscoelastic was injected into the anterior chamber. A 2.4 mm metal micro- keratome was used to create a temporal clear corneal incision. A circular anterior capsulorrhexis was created, followed by hydro-dissection and hydro- delineation. The phacoemulsification hand piece was inserted and the nucleus was removed with the Phaco chop technique. The irrigation-aspiration hand piece was used to remove the residual cortex, and vacuum the posterior capsule. The capsular bag was inflated and viscoelastic and the above-mentioned IOL was injected into the eye with care to insert both leaning and trailing haptics in the capsular bag. The irrigation/aspiration hand piece was reinserted to remove residual viscoelastic from the capsular bag and anterior chamber. The corneal incision was hydrated, and anterior chamber was inflated with sterile BSS via the paracentesis site, and found to be watertight. Postop medication: 1 drop of prednisolone into operative by followed by 1 drop of Cosopt into operative eye followed by 1 drop of Besivance intraoperative by other:
== END 2019-05-23 09:38 | disposition home or self-care (01) ==
LOC: SC 07:35
PROVIDERS: ATTEND Ophthalmology
DX: H25.11 Age-related nuclear cataract, right eye (principal); H40.1112 Primary open-angle glaucoma, right eye, moderate stage; Z79.899 Other long term (current) drug therapy; Z79.82 Long term (current) use of aspirin; Z88.5 Allergy status to narcotic agent; I10 Essential (primary) hypertension; E78.00 Pure hypercholesterolemia, unspecified; Z86.73 Personal history of transient ischemic attack (TIA), and cerebral infarction without residual deficits; Z87.891 Personal history of nicotine dependence
CPT/HCPCS: 66984; 00142; V2632; J2250; J3490 ×2; J0171; 142